=== PATIENT | female | born 1960 | race Caucasian/White ===

== ENCOUNTER 2024-12-10 12:22 | Emergency (ER) | payer OTHER, SELFPAY ==
[2024-12-10 12:25] VITALS: BP 159/102
[2024-12-10 13:42] VITALS: BMI 24.1
[2024-12-10 13:58] VITALS: BP 130/70
--- NOTE | 2024-12-10 14:12 | EDRN ---
Dr. Weems asked about Vj Lens and she said to do Vj lens which was placed at this time to irrigate L eye w/ saline.
--- NOTE | 2024-12-10 14:34 | EDRN ---
Vj lens irrigation completed. Skort got wet so pt given at request box of kleenex for nasal congestion and disposable scrub pants at this time.
--- NOTE | 2024-12-10 15:04 | ED.GENMED ---
History of Present Illness
General
Chief Complaint: Eye Problems
Time Seen by Provider: 12/10/24 14:19
History of Present Illness
History of Present Illness:
64-year-old female presenting with eye irritation. Patient states that she was using exterior household trolley cleaner 'wet and forget' that splashed into her left eye. Patient states that she was wearing glasses at the time. Patient states that she
got in the shower and rinsed off her left eye but was still felt irritated so she went to urgent care recommended come to the emergency department for further evaluation. Patient denies any eye pain or visual changes. Pt denies any symptoms in her
right eye.
Phy Exam
Physical Exam
Physical Exam:
Eyes: PERRLA, EOMI. No foreign body visualized in left eye. Minimal injection to inferior aspect of left conjunctiva. Vision intact 20/20 bilaterally.
Course
Vital Signs
Initial and Last Documented VS:
Initial Vital Signs
Temp Pulse Resp BP Pulse Ox
98.2 F 86 16 159/102 100
12/10/24 12:25 12/10/24 12:25 12/10/24 12:25 12/10/24 12:25 12/10/24 12:25
Last Documented Vital Signs
Temp Pulse Resp BP Pulse Ox
98.2 F 98 14 130/70 97
12/10/24 12:25 12/10/24 13:58 12/10/24 13:58 12/10/24 13:58 12/10/24 15:07
MDM/Problems Addressed
MDM/Problems Addressed:
64-year-old female presenting after getting Wet and Forget exterior household trolley cleaner splashed in her left eye this morning around 1030- 11 AM. Irrigated left eye with normal saline using Vj's lens. Took pH in bilateral eyes after irrigation
which was 7.5 and equal. Vision intact. Stable for discharge with ophthalmology follow-up outpatient
*Pulse Oximetry
SaO2: 97
Oxygen Mode of Delivery: Room air
Patient hypoxic: no
*Critical Care Note
Total Time (30-74mins, 75-104mins- exclusive of procedures): Not Applicable
ED Attending Note
-
Portions of this chart may have been created with voice recognition software.� Occasional wrong word or��sound alike� substitutions may have occurred due to the inherent limitations of voice recognition software.
Discharge Plan
Departure
Patient Disposition: Home (Routine Discharge)
Date of Disposition: 12/10/24
Time of Disposition: 15:07
Patient with high blood pressure during this ER visit?: Yes
Discharge Problem:
Eye irritation
Instructions: Chemical Eye Injury ED, BLOOD PRESSURE
Referrals:
Carlos Yarbrough MD [Active, Ophthalmology]
Jonathan Hernandez DO [Family Provider, Family Practice]
Activity Restrictions/Additional Instructions:
Follow-up with ophthalmology this week
Return to the emergency department for visual changes, eye pain or new/worsening symptoms
Interventions
Interventions:
*Risk Screen - Suicide Last Done: 12/10/24 12:25
*General Assessment Last Done: 12/10/24 12:25
*Neglect/Abuse Screening Last Done: 12/10/24 12:25
*ED- Fall Risk Assessment Last Done: 12/10/24 12:25
*ED COVID-19 Vaccine History Last Done: 12/10/24 13:42
*Nursing Disposition Last Done: 12/10/24 15:17
Discharge Date and Time
Discharge Date/Time: 12/10/24 15:17
Print Language: SWISS
== END 2024-12-10 15:17 | disposition home or self-care (01) ==
LOC: EMR 12:22
PROVIDERS: EMERGENCY PHYSICIAN Emergency Medicine; FAMILY PHYSICIAN Family Medicine
DX: H57.89 Other specified disorders of eye and adnexa (principal); X58.XXXA Exposure to other specified factors, initial encounter; R03.0 Elevated blood-pressure reading, without diagnosis of hypertension
CPT/HCPCS: 99283